=== PATIENT | female | born 2000 | race Hispanic/Latino ===

== ENCOUNTER 2021-02-09 14:25 | Emergency (ER) | payer SELFPAY ==
[2021-02-09 17:29] LABS: Bilirubin Neg (Negative); Blood, Urine Negative (Negative); Clarity Slightly Cloudy (Clear); Glucose, Urine (Dipstick) Normal (Negative); Ketone, Urine Negative (Negative); Leukocyte 100 (Negative); Nitrite Negative (Negative); Protein, Urine (Dipstick) 15 mg/dl (Neg-Trace); Specific Gravity, Urine 1.005 (1.002-1.036); Urobilinogen Normal mg/dL (Less than 2)
[2021-02-09 17:35] LABS: Pregnancy Test - Urine (BHCG) Negative (Negative)
[2021-02-09 17:37] LABS: Pregu Control Background? CLEAR/WHITE (CLR/WHITE); Pregu Control Bar Appear? YES (CONTROL BAR); Specific Gravity 1.005 (1.002-1.036)
[2021-02-09 18:00] LABS: Trichomonas/HPF Rare HPF (None Seen)
[2021-02-09 18:02] LABS: RBC/HPF None Seen HPF (0-3)
[2021-02-09 18:03] LABS: Bacteria/HPF 1+ HPF (None Seen)
[2021-02-09] MEDS ORDERED: Sterile Water 10 ML ONE (18:26)
[2021-02-09] MEDS ORDERED: cefTRIAXone\\ROCEPHIN 500 MG VIAL ONE (18:26)
[2021-02-11 18:49] LABS: Chlamydia by PCR Not Detected (NotDetected); GC by PCR Not Detected (NotDetected)
== END 2021-02-09 19:00 | disposition home or self-care (01) ==
LOC: CSHERS 14:25
DX: A59.9 Trichomoniasis, unspecified (principal); N76.4 Abscess of vulva
CPT/HCPCS: 81003; 81015; 81025; 87480; 87491; 87510; 87591; 87660; 96372; 99283; J0696